=== PATIENT | male | born 1985 | race African-American/Black ===

== ENCOUNTER 2022-04-29 13:38 | Emergency (ER) | payer BC | END 2022-04-29 15:55 | disposition home or self-care (01) | LOC: CSHERS 13:38 | DX: R59.0 Localized enlarged lymph nodes (principal); M79.601 Pain in right arm; R50.83 Postvaccination fever; T50.Z95A Adverse effect of other vaccines and biological substances, initial encounter; K21.9 Gastro-esophageal reflux disease without esophagitis | CPT/HCPCS: 99283 ==

== ENCOUNTER 2022-09-06 21:53 | Emergency (ER) | payer BC ==
[2022-09-06] MEDS ORDERED: Famotidine/PF 20 mg/2ml Vial ONE (23:40)
[2022-09-06] MEDS ORDERED: Ondansetron PF 4 MG/2 ML Vial ONE ×2 (23:40→23:44)
[2022-09-06] MEDS ORDERED: Ketorolac Tromethamine 30 MG/ML VIAL ONE (23:40)
[2022-09-07 00:11] LABS: #Eosinphils 0.2 10x3/uL (0.0-0.5); #Monocytes 0.6 10x3/uL (0.0-1.1); #Neutrophils 7.6 10x3/uL (1.5-8.4); %Basophils 0.3 % (0.0-2.0); %Eosinophils 1.3 % (0.0-6.0); %Lymphocytes 29.3 % (18.0-47.0); %Neutrophils 63.7 % (40.0-75.0); Mean Corpuscular HGB CONC 33.5 g/dL (32.0-36.0); Mean Corpuscular Volume 86.8 fl (81.2-95.1); Platelet Count 259 10x3/uL (150-450); RBC Distribution Width 12.8 % (11.5-14.5); Red Blood Cell (RBC) Count 5.51 10x6/uL (4.32-5.72)
[2022-09-07 00:23] LABS: ALT (SGPT) 45 U/L (8-55); AST (SGOT) 30 U/L (5-34); Albumin 4.6 g/dL (3.5-5.0); Alkaline Phosphatase 71 U/L (40-110); Anion Gap 12 mmol/L (10-20); BUN (Urea Nitrogen) 10 mg/dL (8.9-20.6); Bilirubin, Total 0.6 mg/dL (0.2-1.2); Calc. Creatinine Clearance 0 mL/min (70-130); Calcium 10.1 mg/dL (7.8-10.44); Carbon Dioxide 29 mmol/L (22-29); Chloride 100 mmol/L (98-107); Estimated GFR 89; Glucose 120 mg/dL (70-105); Lipase 35 U/L (8-78); Protein, Total 8.6 g/dL (6.0-8.3); Sodium 137 mmol/L (136-145)
== END 2022-09-07 01:17 | disposition home or self-care (01) ==
LOC: CSHERS 21:53
DX: R11.10 Vomiting, unspecified (principal); D72.829 Elevated white blood cell count, unspecified; K21.9 Gastro-esophageal reflux disease without esophagitis; F17.210 Nicotine dependence, cigarettes, uncomplicated
CPT/HCPCS: 80053; 83690; 85025; 96361; 96374; 96375; J1885; J2405; S0028